=== PATIENT | male | born 1970 | race Caucasian/White ===

== ENCOUNTER 2019-08-06 07:38 | Emergency (ER) | payer BC ==
[2019-08-06 07:54] VITALS: BP 127/75
--- NOTE | 2019-08-06 08:22 | UC ---
General HPI - HPI Summary HPI Summary: CHIEF COMPLAINT and HPI: This is a 49-year-old male with a complex past medical history that includes cardiac arrest and mitral regurgitation. Both of these conditions were dealt with 9 years ago. The patient had a mitral valve replacement at that time as well as a pacemaker defibrillator placed on the left anterior thorax. According to the patient. He has never had to be defibrillated and the pacemaker function has not been used. 2 weeks ago. The patient had a new pacemaker placed in the same site. Because of decreased battery function. This morning he noted discharge of dark red blood from the incision site closest to the axilla. There is a3.5 cm incision that appears intact and without obvious infection. The patient has no complaints of pain over the incision site. The patient is afebrile and is on Coumadin as well as amiodarone, a statin, and metoprolol. at 06 14. I called the patient's cardiologistto consult about treatment for this dark red blood discharge. VITAL SIGNS & SaO2 REVIEWED. Within normal limits unless noted here. 127/75 NURSES NOTE REVIEWED. pacemaker/defib surgery 2 weeks ago (Dr Kevin Blair at [facility] cardiology). his incision to left chest has been healing well, had a f/u on Saturday. Today he got to work and noticed that the site was bleeding. pt is on warfarin. bleeding is controlled at this time. last INR 1 week ago.3.2. - History of Current Complaint Chief Complaint: UCWounds Stated Complaint: WOUND CHECK Time Seen by Provider: 08/06/19 08:09 Pain Intensity: 0 - Allergy/Home Medications Allergies/Adverse Reactions: Allergies Allergy/AdvReac Type Severity Reaction Status Date / Time No Known Allergies Allergy Verified 08/06/19 07:53 Home Medications: Home Medications Allopurinol TAB* [Zyloprim 100 MG TAB*] 100 mg PO DAILY 08/06/19 [History Confirmed 08/06/19] Amiodarone TAB* [Cordarone TAB*] 200 mg PO DAILY 08/06/19 [History Confirmed ] Aspirin EC TAB* [Ecotrin EC Low Dose 81 MG*] 81 mg PO DAILY 08/06/19 [History Confirmed 08/06/19] Atorvastatin* [Lipitor*] 10 mg PO 1700 08/06/19 [History Confirmed 08/06/19] Furosemide TAB* [Lasix TAB*] 20 mg PO .EVERYOTHERDAY 08/06/19 [History Confirmed 08/06/19] Metoprolol Tartrate TAB* [Lopressor TAB*] 25 mg PO DAILY 08/06/19 [History Confirmed 08/06/19] Potassium Chlor TAB* [Klor Con ER TAB*] 10 meq PO .EVERYOTHERDAY 08/06/19 [ History Confirmed 08/06/19] Ramipril CAP* [Altace CAP*] 5 mg PO DAILY 08/06/19 [History Confirmed 08/06/19] Warfarin TAB(*) [Coumadin TAB(*)] 2.5 - 5 mg PO DAILY 08/06/19 [History Confirmed 08/06/19] PMH/Surg Hx/FS Hx/Imm Hx - Additional Past Medical History Additional PMH: PAST MEDICAL HISTORY- CHRONIC and RECURRENT HEALTH PROBLEM LIST REVIEWED. Information relevant to present complaint: 9 years ago, cardiac arrest, pacemaker defibrillator placement, mitral valve replacement. VISIT HISTORY REVIEWED: on Coumadin. MEDICATIONS & ALLERGIES REVIEWED. HYPERTENSION STATUS:on metoprolol. FAMILY HISTORY: Positive for: cardiovascular disease, cancer. SOCIAL HISTORY: smoker, drinks 5 beers a day,lives alone in [place] , and works as a teacher at [employer]. Previously Healthy: Yes - Surgical History Surgical History: Yes Surgery Procedure, Year, and Place: pacemaker/defib - replaced 2018. hernia repair - Social History Alcohol Use: Daily Alcohol Amount: 5 drinks per day Substance Use Type: None Smoking Status (MU): Light Every Day Tobacco Smoker Type: Cigarettes Amount Used/How Often: 5 cig per day Review of Systems All Other Systems Reviewed And Are Negative: Yes Constitutional: Positive: Negative Skin: Positive: Other - oozing from incision site Respiratory: Positive: Negative Cardiovascular: Positive: Negative Gastrointestinal: Positive: Negative Genitourinary: Positive: Negative Is Patient Immunocompromised?: No Physical Exam - Summary Physical Exam Summary: Appearance: The patient is well-appearing, is in no pain or distress, and is well-nourished. Eyes: Conjunctiva are clear. Pupils are equal and reactive to light and accommodation. Extra ocular muscle movement is intact. ENT: The hearing is grossly normal, the pharynx is normal, and the TMs are normal. There is no muffled or hoarse voice. No stridor. Neck: The neck is supple and there is no lymphadenopathy. Respiratory: The chest is non-tender to palpation and without crepitus. The lungs are clear, there are normal breath sounds, and there is no respiratory distress. No wheezes, rales or rhonchi. Cardiovascular: Heart sounds reveal a regular rate and rhythm. There are no clicks, rubs or murmurs. There are no carotid bruits or thrills. Circulation is grossly intact. Abdomen: The abdomen is soft and nontender. There is no organomegaly. Bowel sounds are present and within normal limits. No point tenderness at McBurneys point. No CVA tenderness. Musculoskeletal: Strength is intact. The patient moves all extremities. Neurological: The patient is alert. Motor and sensory are examination grossly intact. Speech is normal. Psychological: The patient displays age appropriate behavior, and is conversant. GCS=15. Skin: Negative for rashes. Incision site: 3.5 cm well-healing incision on the upper left anterior thorax. There is dark red blood oozing from the end of the wound closest to the axilla. Gentle pressure results and more blood but more localized pressure stops the bleeding. There is no pain with palpation. There is no evidence of infection or growing hematoma. Procedure by Mateo.: The area was cleaned and prepped. Hemostasis was achieved with pressure. Benzoin and Steri-Strips were placed across the wound. There was good hemostasis. Patient was comfortable. The wound was dressed with small gauze pad to create pressure and then allowed pad to protect the area. The patient will drive directly to [place] to see his physician. Triage Information Reviewed: Yes Vital Signs: Initial Vital Signs Temp 98.4 F 08/06/19 07:46 Pulse 71 08/06/19 07:46 Resp 14 08/06/19 07:46 BP 127/75 08/06/19 07:46 Pulse Ox 99 08/06/19 07:46 Course/Dx - Course Course Of Treatment: This is a 49-year-old male with a complex past medical history that includes cardiac arrest and mitral regurgitation. Both of these conditions were dealt with 9 years ago. The patient had a mitral valve replacement at that time as well as a pacemaker defibrillator placed on the left anterior thorax. According to the patient. He has never had to be defibrillated and the pacemaker function has not been used. 2 weeks ago. The patient had a new pacemaker placed in the same site. Because of decreased battery function. This morning he noted discharge of dark red blood from the incision site closest to the axilla. There is a3.5 cm incision that appears intact and without obvious infection. The patient has no complaints of pain over the incision site. The patient is afebrile and is on Coumadin as well as amiodarone , a statin, and metoprolol. at 08 25. I called the patient's etiologist to consult about treatment for this dark red blood discharge. . I cleaned the area , Steri-Stripped it and dressed it. There was good hemostasis. When the patient left the [facility]. He will go directly to his doctor. - Differential Dx - Multi-Symptom Differential Diagnoses: Other - bleeding from incision site - Diagnoses Provider Diagnosis: Bleeding from wound Discharge ED - Sign-Out/Discharge Documenting (check all that apply): Patient Departure All imaging exams completed and their final reports reviewed: No Studies - Discharge Plan Condition: Stable Disposition: HOME Referrals: Valeriy Holloway MD [Primary Care Provider] - Additional Instructions: WE DISCUSSED: PLEASE SEEK CARE AT THE EMERGENCY DEPARTMENT IF SYMPTOMS WORSEN OR IF NEW SYMPTOMS DEVELOP. Drive directly to your doctor in [place], so that you can be seen this afternoon. YOUR DIAGNOSIS IS: bleeding from your pacemaker incision site. I have dressed the site to stop the bleeding. If it bleeds, put pressure on the wound to stop the bleeding. YOUR PRESCRIPTION RECOMMENDATION IS:none. OTHER INSTRUCTIONS: Hypertension Discharge Instructions: Your blood pressure reading today was 127/75. Recheck over the next four weeks to see if it's below 120/80. - Billing Disposition and Condition Condition: STABLE Disposition: Home
[2019-08-06] MEDS ORDERED: Benzoin Compound STICK TOPICAL ONE (09:05)
== END 2019-08-06 09:20 | disposition home or self-care (01) ==
LOC: UCEAST 07:38
DX: L76.22 Postprocedural hemorrhage of skin and subcutaneous tissue following other procedure (principal); F17.210 Nicotine dependence, cigarettes, uncomplicated; Z86.74 Personal history of sudden cardiac arrest; Z95.0 Presence of cardiac pacemaker; Z79.01 Long term (current) use of anticoagulants; Z82.49 Family history of ischemic heart disease and other diseases of the circulatory system; Z79.82 Long term (current) use of aspirin; Z79.899 Other long term (current) drug therapy; Y83.8 Other surgical procedures as the cause of abnormal reaction of the patient, or of later complication, without mention of misadventure at the time of the procedure
CPT/HCPCS: 99211; G0463

== ENCOUNTER 2019-08-13 07:05 | Emergency (ER) | payer BC ==
[2019-08-13 07:17] VITALS: BP 131/89
--- NOTE | 2019-08-13 07:45 | UC ---
Skin Complaint HPI - HPI Summary HPI Summary: Patient is a 49-year-old male who presents to the urgent care for wound check. He had a pacemaker defibrillator replacement about a week ago and he is in blood thinners. She has an excessive bleeding but it was controlled. The INR today is 2.8. He has no complaints. He denies any redness, denies any pain, denies any swelling, denies any fevers. - History of Current Complaint Chief Complaint: UCGeneralIllness Time Seen by Provider: 08/13/19 07:11 Stated Complaint: WOUND CHECK Hx Obtained From: Patient Onset/Duration: Sudden Onset Skin Exposure Onset/Duration: Hours Ago Onset Severity: Mild Current Severity: None Pain Intensity: 0 - Allergy/Home Medications Allergies/Adverse Reactions: Allergies Allergy/AdvReac Type Severity Reaction Status Date / Time No Known Allergies Allergy Verified 08/13/19 07:18 PMH/Surg Hx/FS Hx/Imm Hx Previously Healthy: Yes Cardiovascular History: Pacemaker/ICD, Atrial Fibrillation - Surgical History Surgical History: Yes Surgery Procedure, Year, and Place: pacemaker/defib - replaced 2018. hernia repair - Family History Known Family History: Positive: Non-Contributory - Social History Alcohol Use: Daily Alcohol Amount: 5 drinks per day Substance Use Type: None Smoking Status (MU): Light Every Day Tobacco Smoker Type: Cigarettes Amount Used/How Often: 5 cig per day Review of Systems All Other Systems Reviewed And Are Negative: Yes Constitutional: Positive: Negative Skin: Positive: Negative Eyes: Positive: Negative ENT: Positive: Negative Respiratory: Positive: Negative Cardiovascular: Positive: Negative Gastrointestinal: Positive: Negative Genitourinary: Positive: Negative Motor: Positive: Negative Neurovascular: Positive: Negative Musculoskeletal: Positive: Negative Neurological: Positive: Negative Psychological: Positive: Negative Is Patient Immunocompromised?: No Physical Exam - Summary Physical Exam Summary: VITAL SIGNS: Reviewed. GENERAL: Patient is a well developed and nourished male who is lying comfortably in the stretcher. Patient is not in any acute respiratory distress. HEAD AND FACE: No signs of trauma. No ecchymosis, hematomas or skull depressions. No sinus tenderness. EYES: PERRLA, EOMI x 2, No injected conjunctiva, no nystagmus. EARS: Hearing grossly intact. Ear canals and tympanic membranes are within normal limits. MOUTH: Oropharynx within normal limits. NECK: Supple, trachea is midline, no adenopathy, no JVD, no carotid bruit, no c- spine tenderness, neck with full ROM. CHEST: Symmetric, no tenderness at palpation LUNGS: Clear to auscultation bilaterally. No wheezing or crackles. CVS: Regular rate and rhythm, S1 and S2 present, no murmurs or gallops appreciated. ABDOMEN: Soft, non-tender. No signs of distention. No rebound no guarding, and no masses palpated. Bowel sounds are normal. EXTREMITIES: FROM in all major joints, no edema, no cyanosis or clubbing. NEURO: Alert and oriented x 3. No acute neurological deficits. Speech is normal and follows commands. SKIN: Dry and warm, day. Pacemaker and defibrillator in the left side of the chest. Does not signs of erythema, swelling, bleeding. The wound is clean dry and intact. Triage Information Reviewed: Yes Appearance: Well-Appearing Vital Signs: Initial Vital Signs Temp 98.7 F 08/13/19 07:08 Pulse 79 08/13/19 07:08 Resp 18 08/13/19 07:08 BP 131/89 08/13/19 07:08 Pulse Ox 99 08/13/19 07:08 Vital Signs Reviewed: Yes Course/Dx - Course Course Of Treatment: Wound is clean, dried and intact. Patient was discharged home with follow-up with his scale installer and primary care physician as needed. - Diagnoses Provider Diagnosis: Visit for wound check Discharge ED - Sign-Out/Discharge Documenting (check all that apply): Patient Departure All imaging exams completed and their final reports reviewed: No Studies - Discharge Plan Condition: Stable Disposition: HOME Patient Education Materials: Acute Wound Care (ED) Referrals: Valeriy Holloway MD [Primary Care Provider] - Additional Instructions: Follow-up with scale installer as needed. Return to the urgent care or the emergency room if you develop any redness, swelling or any other symptom. Patient understands and agrees. - Billing Disposition and Condition Condition: STABLE Disposition: Home
== END 2019-08-13 07:47 | disposition home or self-care (01) ==
LOC: UCEAST 07:05
DX: Z09 Encounter for follow-up examination after completed treatment for conditions other than malignant neoplasm (principal); F17.210 Nicotine dependence, cigarettes, uncomplicated; I48.91 Unspecified atrial fibrillation; Z95.0 Presence of cardiac pacemaker
CPT/HCPCS: 99211; G0463

== ENCOUNTER 2019-09-05 18:36 | Emergency (ER) | payer BC ==
[2019-09-05 18:49] VITALS: BP 124/85
--- NOTE | 2019-09-05 18:53 | UC ---
Throat Pain/Nasal Judson HPI - HPI Summary HPI Summary: 49 yo with hx of CAD and mitral valve replacement, with a 1 week history of sore throat with dysphagia, no fever or cough. He has had a dull headache, and overall feels a bit better today. His INR on his home test was 6 yesterday, usual range is 2.5 to 3.5 due to hx of valve replacement. He was advised to hold coumadin until tomorrow by a nurse at the cardiology office. We discussed the best approach to this given that a level drawn here would not be available until tomorrow. Discussed that he is currently drinking about 5 beers per day; he is not concerned about this and does not consider himself impaired or the level of intake to be a problem. - History of Current Complaint Chief Complaint: UCRespiratory Stated Complaint: SORE THROAT Time Seen by Provider: 09/05/19 18:50 Hx Obtained From: Patient Onset/Duration: Gradual Onset, Lasting Days Severity: Moderate Pain Intensity: 8 Cough: None Associated Signs & Symptoms: Positive: Dysphagia - Epiglottits Risk Factors Epiglottis Risk Factors: Negative - Allergies/Home Medications Allergies/Adverse Reactions: Allergies Allergy/AdvReac Type Severity Reaction Status Date / Time No Known Allergies Allergy Verified 09/05/19 18:49 Home Medications: Home Medications LORazepam [Ativan 0.5 MG TAB] 0.5 mg PO PRN 09/05/19 [History] PMH/Surg Hx/FS Hx/Imm Hx Cardiovascular History: Cardiac Disease, Pacemaker/ICD, Myocardial Infarction - Surgical History Surgical History: Yes Surgery Procedure, Year, and Place: pacemaker/defib - replaced 2018. hernia repair - Family History Known Family History: Positive: Non-Contributory - Social History Occupation: Employed Full-time Lives: Alone Alcohol Use: Daily Alcohol Amount: 5 drinks per day Substance Use Type: None Smoking Status (MU): Light Every Day Tobacco Smoker Type: Cigarettes Amount Used/How Often: 5 cig per day Review of Systems All Other Systems Reviewed And Are Negative: Yes Constitutional: Positive: Fatigue Skin: Positive: Negative. Negative: Bruising - no easy bruising or gum bleeding. Eyes: Positive: Negative ENT: Positive: Sore Throat Respiratory: Positive: Negative Cardiovascular: Positive: Negative, Other - controlled blood pressure, no chest pain, and he is not short of breath. He has no hx of jaw pain as an anginal equivalent. Gastrointestinal: Positive: Negative - no gi bleeding reported. Genitourinary: Positive: Negative. Negative: Hematuria Motor: Positive: Negative Neurovascular: Positive: Negative Musculoskeletal: Positive: Negative Neurological: Positive: Headache Psychological: Positive: Anxious Is Patient Immunocompromised?: No Physical Exam Triage Information Reviewed: Yes Appearance: Well-Appearing - mildly anxious, No Pain Distress Vital Signs: Initial Vital Signs Temp 99.0 F 09/05/19 18:45 Pulse 73 09/05/19 18:45 Resp 18 09/05/19 18:45 BP 124/85 09/05/19 18:45 Pulse Ox 95 09/05/19 18:45 Eyes: Positive: Conjunctiva Clear ENT: Positive: Pharyngeal erythema - mild swelling and erythema of soft palate. , TM dull - retracted on the left. Neck: Positive: Supple, Nontender, No Lymphadenopathy Respiratory: Positive: Lungs clear, Normal breath sounds Cardiovascular: Positive: RRR, No Murmur Musculoskeletal Exam: Normal Neurological Exam: Normal Neurological: Positive: Alert Psychological Exam: Other - mildly anxious Skin Exam: Normal Diagnostics - Laboratory Lab Results: Rapid strep negative. Throat Pain/Nasal Course/Dx - Course Course Of Treatment: Continue symptomatic treatment of viral illness. Reviewed elevated INR; suggested repeat at home with his own test strips with a follow up call to his yeast pumper. Discussed safe drinking limits and the degree of caution needed with coumadin and alcohol use. He states that he has had labs done within the month with normal ranges reported. - Differential Dx/Diagnosis Differential Diagnosis/HQI/PQRI: Pharyngitis, Tonsillitis, URI Provider Diagnosis: Pharyngitis Discharge ED - Sign-Out/Discharge Documenting (check all that apply): Patient Departure All imaging exams completed and their final reports reviewed: No Studies - Discharge Plan Condition: Stable Disposition: HOME Patient Education Materials: Pharyngitis (ED) Referrals: Valeriy Holloway MD [Primary Care Provider] - Additional Instructions: Your sore throat appearance and symptoms suggest a viral illness. Continue warm water and salt gargling and anticipate that the symptoms will continue to improve. With regard to your INR: given that you have no signs of bruising or bleeding, I suggest a re-check at home using your own strips, with follow up with your physician in [place] as per your routine. I suggest caution in alcohol use, particularly in combination with use of coumadin due to the increased risk of bleeding. Safe drinking guidelines suggest limiting to 2 drinks per day for men, but many medical practictioners would advise signficantly less if you are taking coumadin. - Billing Disposition and Condition Condition: STABLE Disposition: Home
== END 2019-09-05 19:33 | disposition home or self-care (01) ==
LOC: UCEAST 18:36
DX: J02.9 Acute pharyngitis, unspecified (principal); R51 Headache; R53.83 Other fatigue; I25.2 Old myocardial infarction; F17.210 Nicotine dependence, cigarettes, uncomplicated; Z95.0 Presence of cardiac pacemaker
CPT/HCPCS: 87651; 99212; G0463